=== PATIENT | female | born 1985 | race Caucasian/White ===

== ENCOUNTER → 2019-04-30 | Outpatient (REF) | payer OTHER | LOC: M LAB REF 11:52 | PROVIDERS: ATTEND Physician Assistant | DX: J02.9 Acute pharyngitis, unspecified (principal) ==

== ENCOUNTER → 2020-04-09 | Outpatient (REF) | payer OTHER ==
[2020-04-09 13:07] LABS: HEMOGLOBIN A1c 5.7 %
[2020-04-09 13:21] LABS: ALBUMIN 3.3 GM/DL (3.2-5.2); ALT/SGPT 22 U/L (12-78); BILIRUBIN,TOTAL 0.2 MG/DL (0.2-1.0); BLOOD UREA NITROGEN 14 MG/DL (7-18); CALCIUM LEVEL 8.9 MG/DL (8.5-10.1); CARBON DIOXIDE LEVEL 26 MEQ/L (21-32); CHLORIDE LEVEL 107 MEQ/L (98-107); CHOLESTEROL LEVEL 188 MG/DL (<200); CHOLESTEROL RISK RATIO 4.272 (<5); CREATININE FOR GFR 0.87 MG/DL (0.55-1.30); GLOMERULAR FILTRATION RATE > 60.0 (>60); GLUCOSE, FASTING 111 MG/DL (70-100); HDL CHOLESTEROL 44 MG/DL (>40); LDL CHOLESTEROL 110 MG/DL (<100); NON-HDL-C 144 MG/DL; POTASSIUM SERUM 4.5 MEQ/L (3.5-5.1); SODIUM LEVEL 139 MEQ/L (136-145); TOTAL 25(OH) VITAMIN D 20.9 NG/ML (30.0-100.0); TRIGLYCERIDES LEVEL 172 MG/DL (<150)
== END ==
LOC: M LABDRWAD 12:20
PROVIDERS: ATTEND Physician Assistant
DX: Z00.00 Encounter for general adult medical examination without abnormal findings (principal); F41.8 Other specified anxiety disorders; Z13.220 Encounter for screening for lipoid disorders; Z13.1 Encounter for screening for diabetes mellitus